=== PATIENT | female | born 1990 | race Caucasian/White ===

== ENCOUNTER → 2020-05-23 11:57 | Outpatient (CLI) | payer OTHER, SELFPAY ==
[2020-05-23 12:26] LABS: COVID19 -Nasal RAPID Negative (Negative)
== END ==
PROVIDERS: Visit Provider Physician Assistant
DX: Z20.828 Contact with and (suspected) exposure to other viral communicable diseases (principal); J02.9 Acute pharyngitis, unspecified
CPT/HCPCS: 87070; 87635

== ENCOUNTER → 2021-06-05 13:36 | Outpatient (CLI) | payer OTHER, SELFPAY ==
[2021-06-05 14:33] LABS: COVID19 -Nasal RAPID Negative (Negative)
== END ==
PROVIDERS: PCP Family Medicine; Referring Provider Nurse Practitioner Family; Visit Provider Nurse Practitioner Family
DX: Z20.822 Contact with and (suspected) exposure to COVID-19 (principal)
CPT/HCPCS: 87635